=== PATIENT | female | born 1985 | race Caucasian/White ===

== ENCOUNTER → 2024-07-27 | Day surgery (SDC) | payer OTHER ==
[~2024-07-27] VITALS: Ht 142.2 cm; Wt 62.6 kg
[~2024-07-27] MED LIST: AMPICILLIN SODIUM 2 GM/NS 100 ML IV ONE; CHOL100062 GT; CeFAZolin SODIUM 1 GM VIAL ONE; DIVA125C20 GT; FAMO20 GT; ONDANSETRON HCL 4 MG/2 ML VIAL ONE; POLY510P31 GT; PROPOFOL 1% 20 ML VIAL IVP ONE; RINGERS SOLUTION,LACTATED 1,000 ML IV ONE; ROCURONIUM BROMIDE 10 MG/ML 5 ML VIAL ONE; SUCCINYLCHOLINE CHLORIDE 20 MG/ML 10 ML VIAL ONE; TOPI25 GT
[2024-07-27 07:43] LABS: ANION GAP 7 mmol/L (8-16); CALCIUM, TOTAL 9.2 mg/dL (8.8-10.5); CARBON DIOXIDE 23 mmol/L (22-29); CHLORIDE 103 mmol/L (98-107); CREATININE 0.47 mg/dL (0.60-1.30); GLOMERULAR FILTR. RATE CALC > 60 mL/min (>60); GLUCOSE,RANDOM 85 mg/dL (70-110); POTASSIUM 4.4 mmol/L (3.5-5.1); SODIUM SERUM 133 mmol/L (136-145); UREA NITROGEN, BLOOD 14 mg/dL (7-18)
[2024-07-27 07:45] LABS: PROTHROMBIN TIME 11.9 SEC (9.4-11.6)
[2024-07-27 07:49] LABS: ALANINE AMINOTRANSFERASE 20 U/L (12-78); ALBUMIN 2.9 g/dL (3.4-5.0); ALKALINE PHOSPHATASE 106 U/L (46-116); ASPARTATE AMINOTRANSFERASE 24 U/L (15-37); BILIRUBIN,TOTAL 0.3 mg/dL (0.1-1.0); TOTAL PROTEIN, SERUM 7.6 g/dL (6.4-8.2)
[2024-07-27 07:57] LABS: BASOPHILS % (AUTO) 0.8 % (0.0-2.0); EOSINOPHILS % (AUTO) 2.9 % (1.0-6.0); HEMATOCRIT 54.5 % (36-46); HEMOGLOBIN 17.6 g/dL (12.0-16.0); LYMPHOCYTES # (AUTO) 2.3 K/uL (1.0-4.8); LYMPHOCYTES % (AUTO) 39.4 % (22.0-44.0); MEAN CORPUSCULAR HEMOGLOBIN 32.2 pg (26.0-34.0); MEAN CORPUSCULAR HGB CONC 32.3 G/dL (31.0-37.0); MEAN CORPUSCULAR VOLUME 100 fL (80-100); MONOCYTES # (AUTO) 0.5 K/uL (0.1-1.0); MONOCYTES % (AUTO) 7.8 % (2.0-9.0); NEUTROPHILS # (AUTO) 2.9 K/uL (1.8-7.7); NEUTROPHILS % (AUTO) 49.1 % (40.0-70.0); RED BLOOD CELL COUNT(AUTO) 5.46 MIL/uL (4.00-5.20); RED CELL DISTRIBUTION WIDTH 14.2 % (11.5-14.5); WHITE BLOOD COUNT (AUTO) 5.8 K/uL (4.5-11.0)
[2024-07-27 09:06] LABS: PLATELET COUNT (AUTO) 109 K/uL (150-450)
[2024-07-27] MEDS: RINGERS SOLUTION,LACTATED 1,000 ML IV ONE (11:29)
== END | disposition home or self-care (01) ==
LOC: SURGERY 06:36
PROVIDERS: ATTEND Dentist General Practice
DX: K02.9 Dental caries, unspecified (principal); K05.20 Aggressive periodontitis, unspecified; K03.6 Deposits [accretions] on teeth; G40.909 Epilepsy, unspecified, not intractable, without status epilepticus; G80.9 Cerebral palsy, unspecified; Z98.890 Other specified postprocedural states
CPT/HCPCS: 41899; 71045; 80053; 84703; 85025; 85610; 85730; 36415; 93005; J0290; J2704; J0690; J2405; J3490; J0330; J7120; Z7610